=== PATIENT | female | born 1990 | race Two or more races ===

== ENCOUNTER 2020-05-16 05:51 | Observation (INO) | payer BC, OTHER ==
[2020-05-16] MEDS ORDERED: PREN1TAB71 OR (06:53)
== END 2020-05-16 07:32 | disposition home or self-care (01) ==
LOC: LDRP 05:51
PROVIDERS: ADMIT Obstetrics & Gynecology; ATTEND Obstetrics & Gynecology
DX: O62.9 Abnormality of forces of labor, unspecified (principal); Z20.822 Contact with and (suspected) exposure to COVID-19; Z3A.39 39 weeks gestation of pregnancy
CPT/HCPCS: 59025; 81002; G0378

== ENCOUNTER 2020-05-16 13:45 | Inpatient (IN) | payer BC ==
[~2020-05-16] VITALS: Ht 149.9 cm; Wt 68.5 kg
[~2020-05-16 13:45] MED LIST: PREN1TAB71 OR
[2020-05-16] MEDS ORDERED: WITCH HAZEL-GLYCERIN PAD TOP PRN (14:45)
[2020-05-16] MEDS ORDERED: LIDOCAINE 2%HCL (LOCAL ANESTH.) INJ 20ML MDV IJ ONE (14:45)
[2020-05-16] MEDS ORDERED: PROMETHAZINE HCL 25 MG/ML 1ML IV PRN (14:45)
[2020-05-16] MEDS ORDERED: DERMOPLAST 60ML BOTTLE TOP PRN (14:45)
[2020-05-16] MEDS ORDERED: NALBUPHINE HCL 10 MG/1ml INJECTION IV PRN (14:45)
[2020-05-16] MEDS ORDERED: PHISODERM TOP SOLN 240ML BTL TOP PRN (14:45)
[2020-05-16 15:45] LABS: Basophils # (auto) 0 10 ^3/uL (0-0.2); Basophils % (auto) 0.6 % (0.0-2.0); Eosinophils # (auto) 0.2 10 ^3/uL (0-0.8); Eosinophils % (auto) 2.4 % (0.0-7.0); Hematocrit 35.7 % (36.0-46.0); Hemoglobin 12.3 g/dL (12.2-16.2); Lymphocytes # (auto) 1.4 10 ^3/uL (0.4-5.4); Lymphocytes % (auto) 20.5 % (10.0-50.0); Mean Corpuscular Hemoglobin 30.6 pg (28.0-32.0); Mean Corpuscular Hgb Conc. 34.4 g/dL (32.0-36.0); Mean Corpuscular Volume 88.9 fL (80.0-100.0); Monocytes # (auto) 0.7 10 ^3/uL (0-1.3); Monocytes % (auto) 9.7 % (0.0-12.0); Neutrophils # (auto) 4.7 10 ^3/uL (1.6-8.6); Neutrophils % (auto) 66.8 % (37.0-80.0); Nucleated Red Blood Cells % 0.1 %; Platelet Count (auto) 182 10^3/uL (140-450); Red Blood Cells 4.01 10^6/uL (4.0-5.20); Red Cell Distribution Width 13.5 % (11.8-14.3)
[2020-05-16 15:54] LABS: Urine Bacteria NONE SEEN /hpf (None Seen); Urine Blood Negative /uL (Negative); Urine Specific Gravity 1.016 (1.001-1.035); Urine WBC <1 /hpf (0 - 5)
[2020-05-16 16:00] LABS: INR 0.9 (0.9-1.15); Partial Thromboplastin Time 28.5 sec (23.0-31.2)
[2020-05-16] MEDS: miSOPROStol 50 MCG per PRE-CUT 1/2 TAB PO PRN ×2 (16:00→20:15)
[2020-05-16] MEDS: LACTATED RINGER'S 1,000 ML IV SCH (16:02)
[2020-05-16 16:08] LABS: Albumin 2.4 g/dL (3.4-5.0); Calcium 7.9 mg/dL (8.5-10.1); Potassium 3.6 mmol/L (3.5-5.1)
[2020-05-16 16:11] LABS: Bilirubin, Total 0.6 mg/dL (0.2-1.0); Total Protein 5.9 g/dL (6.4-8.2)
[2020-05-16 23:53] LABS: Alcohol, Urine < 3.0 mg/dL (0-10); Amphetamine Screen, Urine NEGATIVE (NEGATIVE); Barbiturate Scree,Urine NEGATIVE (NEGATIVE); Benzodiazephine Screen, Urine NEGATIVE (NEGATIVE); Cannabinoid Screen, Urine NEGATIVE (NEGATIVE); Cocaine Screen, Urine NEGATIVE (NEGATIVE); Opiate Scree,Urine NEGATIVE (NEGATIVE); Phencyclidine Screen, Urine NEGATIVE (NEGATIVE)
[2020-05-17] MEDS ORDERED: LACT. RINGERS/OXYTOCIN 20UNITS 1,000 ML IV ONE (00:45)
[2020-05-17] MEDS ORDERED: LACT. RINGERS/OXYTOCIN 20UNITS 1,000 ML IV SCH (00:45)
[2020-05-17] MEDS ORDERED: TERBUTALINE SULFATE 1 MG/ML 1ML VIAL SC ONE (00:45)
[2020-05-17] MEDS: LACTATED RINGER'S 1,000 ML IV SCH ×2 (00:47→05:51)
[2020-05-17 06:15] LABS: RPR Non Reactive (Non Reactive)
[2020-05-17] MEDS ORDERED: miSOPROStol 100 mcg TAB PR ONE ×2 (10:15→13:00)
[2020-05-17] MEDS ORDERED: METHYLERGONOVINE MALEATE 0.2 MG/ML AMP IM PRN ×2 (10:15→13:00)
[2020-05-17] MEDS ORDERED: miSOPROStol 100 mcg TAB SL ONE ×2 (10:15→13:00)
[2020-05-17] MEDS ORDERED: CARBOPROST TROMETHAMINE 250 MCG/1ML VIAL IM ONE ×3 (12:00→13:12)
[2020-05-17] MEDS ORDERED: ACETAMINOPHEN 325 MG TAB PO PRN ×3 (12:00→19:45)
[2020-05-17] MEDS ORDERED: IBUPROFEN 600 MG TAB PO PRN (12:00)
[2020-05-17] MEDS ORDERED: diphenhdrAMINE HCL 50 MG/1 ML VL IV PRN (13:00)
[2020-05-17] MEDS ORDERED: ACETAMINOPHEN 650 MG RECT SUPP PR PRN (13:00)
[2020-05-17] MEDS ORDERED: TRANEXAMIC ACID 1,000 MG in SODIUM CHL 0.9% 100 ML IV ONE (13:00)
[2020-05-17] MEDS ORDERED: LACTATED RINGER'S 1,000 ML IV SCH (13:00)
[2020-05-17] MEDS ORDERED: ONDANSETRON HCL 4 MG/2 ML VIAL IV PRN (13:00)
[2020-05-17] MEDS ORDERED: CARBOPROST TROMETHAMINE 250 MCG/1ML VIAL IM PRN ×2 (13:00)
[2020-05-17] MEDS ORDERED: ONDANSETRON HCL 4 MG/2 ML VIAL ONE (13:12)
[2020-05-17] MEDS: DIPHENOXYLATE W/ATROPINE 2.5 MG TAB PO PRN ×2 (13:12→19:09)
[2020-05-17] MEDS ORDERED: ceFAZolin 1GM/50ML 50 ML IV ONE (13:16)
[2020-05-17 15:11] VITALS: BP 115/69
[2020-05-17 15:58] VITALS: BP 103/66
[2020-05-17] MEDS ORDERED: DIPHENOXYLATE W/ATROPINE 2.5 MG TAB PO PRN (18:45)
[2020-05-17 19:01] VITALS: BP 97/54
[2020-05-17] MEDS ORDERED: ceFAZolin 1GM/50ML 50 ML IV SCH (20:00)
[2020-05-17 21:30] LABS: Basophils # (auto) 0 10 ^3/uL (0-0.2); Basophils % (auto) 0.1 % (0.0-2.0); Eosinophils # (auto) 0 10 ^3/uL (0-0.8); Eosinophils % (auto) 0.2 % (0.0-7.0); Hematocrit 29.5 % (36.0-46.0); Lymphocytes % (auto) 5.3 % (10.0-50.0); Mean Corpuscular Hgb Conc. 33.7 g/dL (32.0-36.0); Mean Corpuscular Volume 89.1 fL (80.0-100.0); Monocytes # (auto) 1.1 10 ^3/uL (0-1.3); Monocytes % (auto) 6.2 % (0.0-12.0); Neutrophils # (auto) 15.9 10 ^3/uL (1.6-8.6); Neutrophils % (auto) 88.2 % (37.0-80.0); Nucleated Red Blood Cells % 0.1 %; Platelet Count (auto) 178 10^3/uL (140-450); Red Blood Cells 3.31 10^6/uL (4.0-5.20); Red Cell Distribution Width 13.5 % (11.8-14.3)
[2020-05-17] MEDS ORDERED: DIPHENOXYLATE W/ATROPINE 2.5 MG TAB PO SCH ×2 (22:00)
[2020-05-17 23:00] VITALS: BP 98/52
[2020-05-18] MEDS ORDERED: DIPHENOXYLATE W/ATROPINE 2.5 MG TAB PO PRN
[2020-05-18 03:04] VITALS: BP 92/52
[2020-05-18] MEDS ORDERED: ceFAZolin 1GM/50ML 50 ML IV SCH (05:30)
[2020-05-18 07:30] VITALS: BP 93/51
[2020-05-18] MEDS ORDERED: SODIUM CHL 0.9% 1000 ML BAG IV SCH (10:00)
[2020-05-18 11:20] VITALS: BP 93/55
[2020-05-18 14:55] VITALS: BP 91/56
== END 2020-05-18 17:00 | disposition home or self-care (01) | DRG 805 ==
LOC: LDRP 13:45
PROVIDERS: ADMIT Obstetrics & Gynecology; ATTEND Obstetrics & Gynecology
PROC: 10E0XZZ Delivery of Products of Conception, External Approach (ICD-10-PCS; principal; 2020-05-17)
PROC: 0UQMXZZ Repair Vulva, External Approach (ICD-10-PCS; 2020-05-17)
PROC: 10H07YZ Insertion of Other Device into Products of Conception, Via Natural or Artificial Opening (ICD-10-PCS; 2020-05-17)
DX: O36.5930 Maternal care for other known or suspected poor fetal growth, third trimester, not applicable or unspecified (principal); O45.93 Premature separation of placenta, unspecified, third trimester; Z37.0 Single live birth; Z20.822 Contact with and (suspected) exposure to COVID-19; O71.82 Other specified trauma to perineum and vulva; Z3A.39 39 weeks gestation of pregnancy
CPT/HCPCS: 36415; 59025; 80053; 80307; 81001; 81002; 85025; 85610; 85730; 86592; 86703; 86850; 86900; 86901; 87426; 96360; 96361; 96365; 96366; 96372; 96374; G0378; J0690; J2405; J2590

== ENCOUNTER 2020-11-11 01:35 | Inpatient (IN) | payer BC ==
[~2020-11-11] VITALS: Ht 149.9 cm; Wt 69.3 kg
[2020-11-11 02:40] LABS: Basophils # (auto) 0.1 10 ^3/uL (0-0.2); Basophils % (auto) 0.6 % (0.0-2.0); Eosinophils # (auto) 0.1 10 ^3/uL (0-0.8); Eosinophils % (auto) 1.2 % (0.0-7.0); Hematocrit 43.2 % (36.0-46.0); Hemoglobin 14.3 g/dL (12.2-16.2); Lymphocytes % (auto) 8.9 % (10.0-50.0); Mean Corpuscular Hemoglobin 28.1 pg (28.0-32.0); Mean Corpuscular Hgb Conc. 33.1 g/dL (32.0-36.0); Mean Corpuscular Volume 84.9 fL (80.0-100.0); Monocytes # (auto) 0.6 10 ^3/uL (0-1.3); Monocytes % (auto) 4.9 % (0.0-12.0); Neutrophils # (auto) 9.9 10 ^3/uL (1.6-8.6); Neutrophils % (auto) 84.4 % (37.0-80.0); Red Blood Cells 5.09 10^6/uL (4.0-5.20); Red Cell Distribution Width 14.8 % (11.8-14.3); White Blood Cell 11.7 10^3/uL (4.4-10.8)
[2020-11-11 02:57] LABS: Albumin 3.8 g/dL (3.4-5.0); BUN/Creatinine Ratio 10.5; Calcium 9.2 mg/dL (8.5-10.1)
[2020-11-11 03:00] LABS: Bilirubin, Total 0.8 mg/dL (0.2-1.0); Total Protein 7.6 g/dL (6.4-8.2)
[2020-11-11] MEDS ORDERED: FAMOTIDINE (10MG/ML) 2ML VL IV ONE (03:00)
[2020-11-11] MEDS ORDERED: ONDANSETRON HCL 4 MG/2 ML VIAL IV ONE (03:00)
[2020-11-11] MEDS ORDERED: ALUM & MAG HYDROX-SIMETH LIQ(MAALOX) 30 ML PO ONE (03:00)
[2020-11-11] MEDS ORDERED: MORPHINE SULFATE 4 MG/ML SYR/VIAL IV ONE (03:00)
[2020-11-11] MEDS ORDERED: SODIUM CHLORIDE 0.9% 1,000 ML IV ONE (03:00)
[2020-11-11 03:18] LABS: Urine Bacteria NONE SEEN /hpf (None Seen); Urine Blood Negative /uL (Negative); Urine Mucus FEW (None Seen); Urine Specific Gravity 1.024 (1.001-1.035); Urine WBC <1 /hpf (0 - 5)
[2020-11-11] MEDS ORDERED: IOHEXOL 300 MG/ML 100ML BOTTLE IJ ONE (03:35)
[2020-11-11] MEDS ORDERED: PIPERACILLIN-TAZOB 3.375GM 100 ML IV ONE (05:00)
[2020-11-11] MEDS ORDERED: HYDROcodone-ACET 5/325MG TAB PO PRN (05:45)
[2020-11-11] MEDS ORDERED: MORPHINE SULFATE INJECTION 2 MG/ML SYRG IV PRN (05:45)
[2020-11-11] MEDS ORDERED: D5W/SOD CHL 0.45% 1,000 ML IV SCH (05:45)
[2020-11-11] MEDS ORDERED: ACETAMINOPHEN 325 MG TAB PO PRN (05:45)
[2020-11-11] MEDS ORDERED: ONDANSETRON HCL 4 MG/2 ML VIAL IV PRN ×2 (05:45→17:00)
[2020-11-11] MEDS ORDERED: MORPHINE SULFATE 4 MG/ML SYR/VIAL IV PRN (05:45)
[2020-11-11] MEDS ORDERED: NITROGLYCERIN 0.4 MG SL TAB SL PRN (05:45)
[2020-11-11 06:40] LABS: Basophils # (auto) 0.1 10 ^3/uL (0-0.2); Basophils % (auto) 1.2 % (0.0-2.0); Eosinophils # (auto) 0 10 ^3/uL (0-0.8); Eosinophils % (auto) 0.2 % (0.0-7.0); Hematocrit 39.8 % (36.0-46.0); Hemoglobin 13.2 g/dL (12.2-16.2); Lymphocytes # (auto) 0.8 10 ^3/uL (0.4-5.4); Lymphocytes % (auto) 6.2 % (10.0-50.0); Mean Corpuscular Hgb Conc. 33.1 g/dL (32.0-36.0); Mean Corpuscular Volume 84.8 fL (80.0-100.0); Monocytes # (auto) 0.5 10 ^3/uL (0-1.3); Monocytes % (auto) 4.1 % (0.0-12.0); Neutrophils # (auto) 11.1 10 ^3/uL (1.6-8.6); Neutrophils % (auto) 88.3 % (37.0-80.0); Red Blood Cells 4.69 10^6/uL (4.0-5.20); Red Cell Distribution Width 14.7 % (11.8-14.3); White Blood Cell 12.6 10^3/uL (4.4-10.8)
[2020-11-11 06:47] LABS: INR 1.01 (0.9-1.15); Partial Thromboplastin Time 28.4 sec (23.6-33.0)
[2020-11-11 06:55] LABS: Potassium 4.1 mmol/L (3.5-5.1)
[2020-11-11 07:03] LABS: Albumin 3.5 g/dL (3.4-5.0); Bilirubin, Total 0.8 mg/dL (0.2-1.0); Calcium 8.4 mg/dL (8.5-10.1); Total Protein 6.7 g/dL (6.4-8.2)
[2020-11-11] MEDS: FAMOTIDINE (10MG/ML) 2ML VL IV SCH ×2 (11:22→22:48)
[2020-11-11] MEDS ORDERED: LIDOCAINE 1% HCL (LOCAL ANESTH.) INJ 20ML MDV ONE (15:48)
[2020-11-11] MEDS ORDERED: BUPIVACAINE W/ EPINEPH 0.25% INJ 50ML MDV ONE (15:48)
[2020-11-11] MEDS ORDERED: SUCCINYLCHOLINE CHLORIDE 20 MG/ML 10ML VIAL IV ONE (15:55)
[2020-11-11] MEDS ORDERED: fentaNYL CITRATE 100 MCG/2 ML VL ONE (15:58)
[2020-11-11] MEDS ORDERED: MIDAZOLAM HCL 2MG/2ML 2ml VIAL (1mg/ml) ONE (15:58)
[2020-11-11] MEDS ORDERED: ROCURONIUM 10MG/ML 10ML VIAL IV ONE (15:59)
[2020-11-11] MEDS ORDERED: NEOSTIGMINE 1 MG/ML INJ (10mg/10ML VIAL) IV ONE (16:00)
[2020-11-11] MEDS ORDERED: GLYCOPYRROLATE 0.2 MG/ML 1ML VIAL IV ONE (16:00)
[2020-11-11] MEDS ORDERED: HYDROCORTISONE SOD SUCC 100 MG/2ML INJ VIAL ONE (16:10)
[2020-11-11] MEDS ORDERED: ETOMIDATE (2MG/ML) 20ML VIAL IV ONE (16:32)
[2020-11-11] MEDS ORDERED: ONDANSETRON HCL 4 MG/2 ML VIAL ONE (16:43)
[2020-11-11] MEDS ORDERED: DexAMETHasone SOD PHOS 10MG/1ML VIAL INJ ONE (16:48)
[2020-11-11] MEDS: D5W/SOD CHL 0.45%/KCL 20MEQ 1,000 ML IV SCH (17:00)
[2020-11-11] MEDS ORDERED: HYDROmorphone HCL 2 MG/ML VL IV PRN ×2 (17:00)
[2020-11-11] MEDS ORDERED: METOCLOPRAMIDE HCL 5MG/ml INJ 2ml VIAL IV PRN (17:00)
[2020-11-11] MEDS: PIPERACILLIN-TAZOB 3.375GM 100 ML IV SCH ×2 (17:41→22:48)
[2020-11-11] MEDS: metroNIDAZOLE 500MG/100ML 100 ML IV SCH (18:00)
[2020-11-11 19:10] VITALS: BP 98/61
[2020-11-11 22:00] VITALS: BP 93/54
[2020-11-12] MEDS: D5W/SOD CHL 0.45%/KCL 20MEQ 1,000 ML IV SCH ×2 (01:20→09:40)
[2020-11-12] MEDS: metroNIDAZOLE 500MG/100ML 100 ML IV SCH ×2 (02:00→09:15)
[2020-11-12 05:00] VITALS: BP 88/53
[2020-11-12 05:37] LABS: Basophils # (auto) 0 10 ^3/uL (0-0.2); Basophils % (auto) 0.1 % (0.0-2.0); Eosinophils # (auto) 0 10 ^3/uL (0-0.8); Hematocrit 32.5 % (36.0-46.0); Hemoglobin 10.9 g/dL (12.2-16.2); Lymphocytes # (auto) 0.5 10 ^3/uL (0.4-5.4); Lymphocytes % (auto) 7.1 % (10.0-50.0); Mean Corpuscular Hemoglobin 28.2 pg (28.0-32.0); Mean Corpuscular Hgb Conc. 33.5 g/dL (32.0-36.0); Mean Corpuscular Volume 84.3 fL (80.0-100.0); Monocytes # (auto) 0.3 10 ^3/uL (0-1.3); Monocytes % (auto) 3.9 % (0.0-12.0); Neutrophils # (auto) 6.6 10 ^3/uL (1.6-8.6); Neutrophils % (auto) 88.9 % (37.0-80.0); Red Blood Cells 3.85 10^6/uL (4.0-5.20); Red Cell Distribution Width 14.5 % (11.8-14.3); White Blood Cell 7.5 10^3/uL (4.4-10.8)
[2020-11-12 05:43] LABS: Albumin 2.9 g/dL (3.4-5.0); Calcium 8.2 mg/dL (8.5-10.1); Potassium 3.9 mmol/L (3.5-5.1)
[2020-11-12 05:47] LABS: BUN/Creatinine Ratio 11.9; Bilirubin, Total 1.2 mg/dL (0.2-1.0); Total Protein 5.9 g/dL (6.4-8.2)
[2020-11-12] MEDS: PIPERACILLIN-TAZOB 3.375GM 100 ML IV SCH (06:11)
[2020-11-12 09:00] VITALS: BP 95/57
[2020-11-12] MEDS: FAMOTIDINE (10MG/ML) 2ML VL IV SCH (09:16)
[2020-11-12] MEDS ORDERED: PANTOPRAZOLE 40 MG/10 ML VIAL INJ IV SCH (10:00)
[2020-11-12 13:00] VITALS: BP 88/55
[2020-11-12 15:14] VITALS: BP 95/57
== END 2020-11-12 17:15 | disposition home or self-care (01) | DRG 343 ==
LOC: ER 01:35 → OVERFLOW 05:43 → CENTRAL 17:57
PROVIDERS: ADMIT Nurse Practitioner Family; ATTEND Family Medicine
PROC: 0DTJ4ZZ Resection of Appendix, Percutaneous Endoscopic Approach (ICD-10-PCS; principal; 2020-11-11 16:03)
DX: K35.80 Unspecified acute appendicitis (principal); Z20.822 Contact with and (suspected) exposure to COVID-19
CPT/HCPCS: 36415; 74177; 80053; 81001; 81025; 83036; 83690; 84702; 85025; 85610; 85730; 86850; 86900; 86901; 87070; 87075; 87205; 87426; 93005; 96361; 96365; 96375; C9113; G0378; J0330; J1100; J2001; J2250; J2405; J2543; J3490

== ENCOUNTER 2020-11-15 17:35 | Emergency (ER) | payer BC ==
[~2020-11-15] VITALS: Ht 149.9 cm; Wt 60.3 kg
[2020-11-15 18:09] LABS: Basophils # (auto) 0.2 10 ^3/uL (0-0.2); Basophils % (auto) 2.2 % (0.0-2.0); Eosinophils # (auto) 0.4 10 ^3/uL (0-0.8); Hematocrit 33.5 % (36.0-46.0); Hemoglobin 11.1 g/dL (12.2-16.2); Lymphocytes # (auto) 1.8 10 ^3/uL (0.4-5.4); Lymphocytes % (auto) 23.6 % (10.0-50.0); Mean Corpuscular Hemoglobin 28.2 pg (28.0-32.0); Mean Corpuscular Hgb Conc. 33.2 g/dL (32.0-36.0); Mean Corpuscular Volume 84.8 fL (80.0-100.0); Monocytes # (auto) 0.7 10 ^3/uL (0-1.3); Neutrophils # (auto) 4.5 10 ^3/uL (1.6-8.6); Neutrophils % (auto) 60.2 % (37.0-80.0); Nucleated Red Blood Cells % 0.1 %; Red Blood Cells 3.96 10^6/uL (4.0-5.20); Red Cell Distribution Width 14.4 % (11.8-14.3); White Blood Cell 7.5 10^3/uL (4.4-10.8)
[2020-11-15 18:26] LABS: Albumin 3.5 g/dL (3.4-5.0); BUN/Creatinine Ratio 13.5; Calcium 8.8 mg/dL (8.5-10.1); Potassium 3.7 mmol/L (3.5-5.1)
[2020-11-15 18:30] LABS: Urine Bacteria FEW /hpf (None Seen); Urine Blood Negative /uL (Negative); Urine Specific Gravity 1.018 (1.001-1.035); Urine WBC 2 /hpf (0 - 5)
[2020-11-15] MEDS ORDERED: IOHEXOL 350 MG/ML 100ML IJ ONE (21:08)
[2020-11-16] MEDS ORDERED: SODIUM CHLORIDE 0.9% 1,000 ML IV ONE ×2 (01:00→02:45)
[2020-11-16] MEDS ORDERED: ONDANSETRON HCL 4 MG/2 ML VIAL IV ONE (01:00)
[2020-11-16] MEDS ORDERED: MORPHINE SULFATE 4 MG/ML SYR/VIAL IV ONE (01:00)
[2020-11-16 04:45] LABS: Basophils # (auto) 0 10 ^3/uL (0-0.2); Basophils % (auto) 0.5 % (0.0-2.0); Eosinophils # (auto) 0.2 10 ^3/uL (0-0.8); Eosinophils % (auto) 2.8 % (0.0-7.0); Hematocrit 28.5 % (36.0-46.0); Hemoglobin 9.8 g/dL (12.2-16.2); Lymphocytes # (auto) 1.5 10 ^3/uL (0.4-5.4); Lymphocytes % (auto) 22.6 % (10.0-50.0); Mean Corpuscular Hemoglobin 29.1 pg (28.0-32.0); Mean Corpuscular Hgb Conc. 34.2 g/dL (32.0-36.0); Mean Corpuscular Volume 85.1 fL (80.0-100.0); Monocytes # (auto) 0.7 10 ^3/uL (0-1.3); Monocytes % (auto) 10.1 % (0.0-12.0); Neutrophils # (auto) 4.2 10 ^3/uL (1.6-8.6); Red Blood Cells 3.35 10^6/uL (4.0-5.20); Red Cell Distribution Width 14.5 % (11.8-14.3); White Blood Cell 6.6 10^3/uL (4.4-10.8)
[2020-11-16 05:20] VITALS: BP 99/61
== END 2020-11-16 05:43 | disposition home or self-care (01) ==
LOC: ER 17:35
DX: G89.18 Other acute postprocedural pain (principal); Z90.89 Acquired absence of other organs; Z88.8 Allergy status to other drugs, medicaments and biological substances
CPT/HCPCS: 36415; 71260; 74176; 74177; 80053; 81001; 85025; 96361; 96374; 96375; 99285; J2270; J2405; J7030; Q9967

== ENCOUNTER 2020-11-17 09:22 | Emergency (ER) | payer BC ==
[~2020-11-17] VITALS: Ht 149.9 cm; Wt 64.9 kg
[2020-11-17 09:36] VITALS: BP 105/72
[2020-11-17 09:56] LABS: Urine Bacteria NONE SEEN /hpf (None Seen); Urine Blood Negative /uL (Negative); Urine Mucus FEW (None Seen); Urine Specific Gravity 1.018 (1.001-1.035); Urine WBC 3 /hpf (0 - 5)
[2020-11-17] MEDS ORDERED: cefTRIAXone SOD 1,000 MG VL IM ONE (10:45)
[2020-11-17] MEDS ORDERED: KETOROLAC TROMETH 60MG/2ML VIAL IM ONE (10:45)
== END 2020-11-17 11:10 | disposition home or self-care (01) ==
LOC: ER 09:22
DX: N39.0 Urinary tract infection, site not specified (principal); G89.18 Other acute postprocedural pain
CPT/HCPCS: 81001; 96372; 99284; J0696; J1885